=== PATIENT | female | born 1995 | race Two or more races ===

== ENCOUNTER 2022-10-16 07:10 | Inpatient (IN) | payer MEDICAID ==
[2022-10-16] MEDS ORDERED: Calcium Carbonate 500 MG Tab.Chew PO PRN (07:24)
[2022-10-16] MEDS ORDERED: Ondansetron 4 MG/2 ML SDV IVPUSH PRN (07:24)
[2022-10-16] MEDS ORDERED: Nalbuphine 10 MG/0.5 ML Syringe IVPUSH PRN (07:24)
[2022-10-16] MEDS ORDERED: Oxytocin/Lactated Ringers 10 UNIT/1,000 ML BAG IV SCH ×2 (07:30)
[2022-10-16] MEDS ORDERED: Penicillin G Potassium 5 MILLUNITS in Sodium Chloride 0.9% 100 ML IV SCH (07:30)
[2022-10-16] MEDS: Lactated Ringers 1,000 ML IV SCH ×2 (08:17→11:33)
[2022-10-16] MEDS ORDERED: Penicillin G Potassium 2.5 MILLUNITS in Sodium Chloride 0.9% 100 ML IV SCH (11:30)
[2022-10-16] MEDS ORDERED: ePHEDrine 50 MG/ML SDV IVPUSH PRN (15:38)
[2022-10-16] MEDS ORDERED: diphenhydrAMINE 50 MG/ML SDV IVPUSH PRN (15:38)
[2022-10-16] MEDS ORDERED: Bupivacaine/fentaNYL/NS 100 ML Bag EPIDUR PRN (15:38)
[2022-10-16] MEDS ORDERED: fentaNYL 100 MCG/2 ML SDV EPIDUR PRN (15:38)
[2022-10-16] MEDS ORDERED: Ropivacaine 0.2% PF 2 MG/ML 20 ML SDV ONE (18:00)
[2022-10-16] MEDS ORDERED: Acetaminophen 325 MG Tab PO PRN (18:19)
[2022-10-16] MEDS ORDERED: Docusate Sodium 100 MG Cap PO PRN (18:19)
[2022-10-16] MEDS ORDERED: Ibuprofen 600 MG Tab PO PRN (18:19)
[2022-10-16] MEDS ORDERED: Witch Hazel Medicated Pads 40/Jar TOP PRN (18:19)
[2022-10-16] MEDS ORDERED: Benzocaine/Menthol 20%-0.5% Spray 78 GM Cannister TOP PRN (18:19)
[2022-10-17 08:20] VITALS: BP 115/66; PULSE 66
== END 2022-10-17 15:49 | disposition home or self-care (01) | DRG 807 ==
LOC: JD.OB 07:10 → OBSVTOIN 16:07
PROVIDERS: ADMIT Obstetrics & Gynecology; ATTEND Obstetrics & Gynecology
PROC: 10E0XZZ Delivery of Products of Conception, External Approach (ICD-10-PCS; principal; 2022-10-16)
PROC: 10907ZC Drainage of Amniotic Fluid, Therapeutic from Products of Conception, Via Natural or Artificial Opening (ICD-10-PCS; 2022-10-16)
PROC: 3E033VJ Introduction of Other Hormone into Peripheral Vein, Percutaneous Approach (ICD-10-PCS; 2022-10-16)
PROC: 3E0R3BZ Introduction of Anesthetic Agent into Spinal Canal, Percutaneous Approach (ICD-10-PCS; 2022-10-16)
PROC: 00HU33Z Insertion of Infusion Device into Spinal Canal, Percutaneous Approach (ICD-10-PCS; 2022-10-16)
PROC: 3E0334Z Introduction of Serum, Toxoid and Vaccine into Peripheral Vein, Percutaneous Approach (ICD-10-PCS; 2022-10-17)
DX: O99.824 Streptococcus B carrier state complicating childbirth (principal); Z37.0 Single live birth; Z3A.40 40 weeks gestation of pregnancy; O99.52 Diseases of the respiratory system complicating childbirth; J45.909 Unspecified asthma, uncomplicated; O99.344 Other mental disorders complicating childbirth; F41.9 Anxiety disorder, unspecified; F32.A Depression, unspecified; O69.81X0 Labor and delivery complicated by cord around neck, without compression, not applicable or unspecified; Z87.891 Personal history of nicotine dependence; O26.893 Other specified pregnancy related conditions, third trimester; Z67.11 Type A blood, Rh negative
CPT/HCPCS: 36415; 59025; 59409; 82947; 85025; 85461; 86592; 86850; 86870; 86900; 86901; A9270-GY; J2300; J2540; J2590; J2790; J2795; J7120